=== PATIENT | male | born 1985 | race Caucasian/White ===

== ENCOUNTER 2018-05-02 21:35 | Emergency (ER) | payer BC ==
[~2018-05-02] VITALS: Ht 182.9 cm; Wt 70.3 kg
[2018-05-02] MEDS ORDERED: LANTUS100 UNIT/M SW&SWALLOW (21:48)
[2018-05-02] MEDS ORDERED: HUMALOG100 UNIT/1 SUBQ (21:48)
[2018-05-02] MEDS ORDERED: NORCO 5-325 TA1 EACH PO (23:54)
[2018-05-02] MEDS ORDERED: BACTRIM DS TAB1 EACH PO (23:54)
[2018-05-03 00:22] VITALS: BP 137/79
== END 2018-05-03 00:23 | disposition home or self-care (01) ==
LOC: ER 21:35
DX: S01.81XA Laceration without foreign body of other part of head, initial encounter (principal); S61.210A Laceration without foreign body of right index finger without damage to nail, initial encounter; R55 Syncope and collapse; E10.9 Type 1 diabetes mellitus without complications; Z90.49 Acquired absence of other specified parts of digestive tract; Z79.4 Long term (current) use of insulin; W26.0XXA Contact with knife, initial encounter; Y92.89 Other specified places as the place of occurrence of the external cause; Y93.G1 Activity, food preparation and clean up; Y99.8 Other external cause status